=== PATIENT | male | born 1990 | race Caucasian/White ===

== ENCOUNTER 2016-09-18 07:36 | Emergency (ER) | payer BC, OTHER ==
[~2016-09-18] VITALS: Ht 182.9 cm; Wt 72.0 kg
[2016-09-18 07:39] VITALS: TEMP 36.9; Ht 182.9 cm; Wt 72.0 kg
[2016-09-18] MEDS ORDERED: IBUPROFEN 600 MG TAB PO STA (07:47)
--- NOTE | 2016-09-18 07:49 | EMERGENCY ROOM VISIT NOTE ---
ED Visit Note First contact with patient: 07:42 CHIEF COMPLAINT: Hand injury HISTORY OF PRESENT ILLNESS: This 25-year-old male patient presented to the emergency department ambulatory after they injured the left hand at work when he was trying to start a generator with a pull start and the rope slipped and pulled his hand. He reports abrasions and lacerations to the palm of the left hand. There was no audible snap or crack at that time. The patient rates the pain as moderate and 10/10. The patient denies any numbness or tingling. The patient does not have injuries to the wrist. Normal range of motion of the wrist. The patient has not had an injury to this hand before. His tetanus is not up-to-date REVIEW OF SYSTEMS: A 6 system review of systems was completed with positives and pertinent negatives in the HPI. ALLERGIES: No known drug allergies MEDICATIONS: None PMH: None SOCIAL HISTORY: The patient is employed. He is a smoker. PHYSICAL EXAM: Vital Signs: Reviewed Nurse's notes, vital signs stable. GENERAL : This is a 25-year-old male, in no acute distress, but appears to be in pain, well-developed, well-nourished. MUSCULOSKELETAL: There is no deformity of the left hand. There is tenderness diffusely over the hand but worse over the first metacarpal. There is no thenar or hypothenar eminence atrophy. Normal thumb opposition to all fingers. [place] strength 4/5.there are multiple areas of abrasion and small laceration. Capillary refill less than 2 seconds. No tenderness of the fingers or wrist. Full range of motion of the wrist. No snuff box tenderness. Radial pulse 2+. NEURO: Alert and oriented to person, place, and time. Normal sensation to light and sharp touch. EMERGENCY DEPARTMENT COURSE: I examined the patient. An x-ray of the left hand was reviewed by myself and radiology and shows no fracture dislocation the patient does have pain over the first metacarpal. He has swelling and decreased range of motion. This could represent an ulnar collateral ligament injury. The patient does have blisters and abrasions to the palm of the hand. The open wounds were cleaned and dressed with bacitracin and a nonstick dressing. He was given Adacel injection. The patient was placed in a removable thumb spica splint. He was given 600 mg ibuprofen. He was encouraged to contact orthopedics to schedule a follow-up appointment for further evaluation and management. He should return with any worsening symptoms. The patient was discharged home in good condition. LEFT HAND 3 VIEWS HISTORY: left hand pain COMPARISON: None. FINDINGS: There is no fracture or dislocation. Soft tissues are unremarkable. No radiopaque foreign bodies. IMPRESSION: No fractures. Current/Historical Medications No Active Prescriptions or Reported Meds Allergies Coded Allergies: No Known Allergies (Unverified , 09/18/16) Vital Signs Date Time Temp Pulse Resp B/P Pulse Ox O2 Delivery O2 Flow Rate FiO2 09/18/16 08:35 86 18 139/77 98 Room Air 09/18/16 07:39 36.9 99 18 140/66 96 Room Air Medications Administered Medications (Trade) Dose Ordered Sig/Michelle Route Start Time Stop Time Status Last Admin Dose Admin Diphtheria/ Pertussis/Tetanus Vacc (Adacel Inj) 0.5 ml ONCE ONCE IM. 09/18/16 08:00 09/18/16 08:01 DC 09/18/16 07:52 0.5 ML Ibuprofen (Motrin Tab) 600 mg NOW STAT PO 09/18/16 07:47 09/18/16 07:48 DC 09/18/16 07:51 600 MG Departure Information Impression Primary Impression: Thumb sprain Additional Impressions: Hand abrasion Work related injury Dispostion Home / Self-Care Condition GOOD Prescriptions No Active Prescriptions or Reported Meds Referrals No Doctor, Assigned (PCP) Ehsan Swenson, DO Patient Instructions ED Sprain Finger, [facility] Additional Instructions Motrin 600 mg every 6-8 hours for moderate pain. Keep the area clean and dry. Apply antibiotic ointment and a dressing 1-2 times daily. Watch for any redness, swelling, warmth, drainage of pus. Wear the splint until seen by orthopedics, particularly while at work with limited use of the right hand until cleared by orthopedics Contact orthopedics today to schedule a follow-up appointment for further evaluation and management Return with any worsening symptoms Problem Qualifiers Primary Impression: Thumb sprain Encounter type: initial encounter Sprain of finger site: metacarpophalangeal joint Laterality: left Qualified Codes: S63.642A - Sprain of metacarpophalangeal joint of left thumb, initial encounter Additional Impressions: Hand abrasion Encounter type: initial encounter Laterality: left Qualified Codes: S60.512A - Abrasion of left hand, initial encounter
[2016-09-18] MEDS ORDERED: DIPHTHERIA/TETANUS/PERTUSSIS 0.5 ML SYR/VIAL IM. ONE (08:00)
--- NOTE | 2016-09-18 08:13 | DIAGNOSTIC IMAGING REPORT ---
LEFT HAND 3 VIEWS HISTORY: left hand pain COMPARISON: None. FINDINGS: There is no fracture or dislocation. Soft tissues are unremarkable. No radiopaque foreign bodies. IMPRESSION: No fractures. Electronically signed by: Bony Foss M.D. 09/18/2016 8:11 AM Dictated Date/Time: 09/18/2016 8:09 AM
[2016-09-18 08:35] VITALS: BP 139/77; PULSE 86; O2SAT 98
== END 2016-09-18 08:40 | disposition home or self-care (01) ==
LOC: C.EDB 07:38 → C.EDA 08:40
DX: S63.642A Sprain of metacarpophalangeal joint of left thumb, initial encounter (principal); S60.512A Abrasion of left hand, initial encounter; W22.8XXA Striking against or struck by other objects, initial encounter; Y92.89 Other specified places as the place of occurrence of the external cause; Y99.0 Civilian activity done for income or pay; F17.210 Nicotine dependence, cigarettes, uncomplicated